=== PATIENT | female | born 1995 | race Caucasian/White ===

== ENCOUNTER 2020-02-13 20:56 | Inpatient (IN) ==
[2020-02-13 21:45] LABS: Apearance,Urine CLEAR (Clear); Bacteria,Urine Occasional /HPF (Few); Bilirubin,Urine Negative (Negative); Blood, Urine Small mg/dL (Negative); Glucose,Urine (UA) Negative (Negative); Ketones,Urine Negative (Negative); Mucus,Urine Many /LPF (Occasional); Nitrite,Urine Negative (Negative); Protein,Urine >=500 MG/DL; RBC,Urine 1 /HPF (0-4); Squamous Epithelial Cell,Urine Occasional /HPF (0-10); Urine Color Yellow (Yellow); Urine Specific Gravity 1.027 (1.001-1.035); Urine Urobilinogen < 2.0 EU/DL (0.2-1.0); WBC,Urine 4 /HPF (0-6)
[2020-02-14] MEDS: LABETALOL 100 MG TABLET PO SCH ×2 (00:32→19:25)
[2020-02-14] MEDS ORDERED: MEPERIDINE 50 MG/1 ML VIAL IV ONE (02:36)
[2020-02-14] MEDS ORDERED: ONDANSETRON 4 MG/2 ML VIAL IV ONE (02:37)
[2020-02-14] MEDS ORDERED: MAGNESIUM SULF RIDER 100 ML IV ONE (02:38)
[2020-02-14] MEDS ORDERED: MAGNESIUM SULF DRIP 40 GM/1,000 ML ML IV SCH (03:00)
[2020-02-14] MEDS ORDERED: CITRIC ACID/SODIUM CITRATE 30 ML UDCUP PO ONE (03:37)
[2020-02-14] MEDS: LACTATED RINGERS 1,000 ML IV SCH ×3 (03:42→18:30)
[2020-02-14 03:54] LABS: Basophils % 0.4 % (0.0-0.8); Eosinophils # 0.2 10*3/uL (0.0-0.87); Eosinophils % 1.5 % (0.00-10.9); Hematocrit 34.7 VOL% (35.7-47.0); Hemoglobin 11.4 GM/DL (12.0-16.0); Immature Granulocytes % 0.4 %; Immature Granulocytes Absolute 0.05 #; Lymphocytes # 2.1 10*3/uL (1.4-4.0); Mean Corpuscular HGB Conc 32.9 GM/DL (32-36); Mean Corpuscular Volume 94.6 FL (87-102); Monocytes % 6.1 % (1.7-12.7); Neutrophils % 72.6 % (38.7-73.9); Platelet Count 109 T/CUMM (130-400); Red Blood Count 3.67 MC/CUMM (3.8-5.5); Red Cell Distribution Width 12.5 % (9.3-17.3); White Blood Count 11.1 T/CUMM (4-12)
[2020-02-14] MEDS ORDERED: ceFAZolin 2,000 MG in PREMIX 1 EACH IV ONE (04:00)
[2020-02-14] MEDS ORDERED: LACTATED RINGERS 1,000 ML IV SCH ×2 (04:00→08:30)
[2020-02-14 04:32] LABS: Microcytosis Slight; Platelet Estimate Decreased
[2020-02-14 04:36] LABS: Apearance,Urine CLEAR (Clear); Bacteria,Urine Occasional /HPF (Few); Bilirubin,Urine Negative (Negative); Blood, Urine Small mg/dL (Negative); Glucose,Urine (UA) Negative (Negative); Ketones,Urine Negative (Negative); Mucus,Urine Occasional /LPF (Occasional); Nitrite,Urine Negative (Negative); Protein,Urine >=500 MG/DL; RBC,Urine 1 /HPF (0-4); Squamous Epithelial Cell,Urine Occasional /HPF (0-10); Urine Color Straw (Yellow); Urine Urobilinogen < 2.0 EU/DL (0.2-1.0); WBC,Urine <1 /HPF (0-6)
[2020-02-14] MEDS ORDERED: hydrALAZINE 20 MG/1 ML VIAL IV ONE ×2 (04:44→05:08)
[2020-02-14] MEDS ORDERED: FAMOTIDINE 20 MG/2 ML VIAL IV ONE (06:16)
[2020-02-14 06:32] LABS: INR 0.9; PT Patient Result 9.3 SECS (9.8-11.9); Partial Thromboplastin Time 26.9 SECS (23.9-33.8)
[2020-02-14 06:51] LABS: Alanine Aminotransferase 11 U/L (13-56); Albumin 2.5 G/DL (3.4-5.0); Alkaline Phosphatase 201 U/L (45-117); Aspartate Amino Transferase 17 U/L (0-37); Bilirubin,Total < 0.39 MG/DL (0.2-1.0); Blood Urea Nitrogen 14 MG/DL (7-18); Calcium 8.3 MG/DL (8.5-10.1); Estimated Glom Filtration Rate 110 ML/MIN; Glucose 87 MG/DL (74-106); Osmolality,Calculated 267.2 MOS/KG (273-304); Total Protein 6.3 G/DL (6.4-8.3); Uric Acid 7.5 MG/DL (2.6-6.0)
[2020-02-14] MEDS ORDERED: MORPHINE 10 MG/10 ML VIAL ONE (07:12)
[2020-02-14] MEDS ORDERED: PHENYLEPHRINE 1 MG/10 ML SYRINGE IV ONE (07:12)
[2020-02-14] MEDS ORDERED: BUPIVACAINE SPINAL 0.75% 2 ML AMP SPINAL ONE (07:12)
[2020-02-14] MEDS ORDERED: OXYTOCIN 10 UNIT/ML VIAL IM ONE (07:17)
[2020-02-14] MEDS ORDERED: OXYTOCIN/LR 30 UNIT/1,000 ML BAG IV ONE (07:17)
[2020-02-14] MEDS ORDERED: OXYTOCIN 10 UNIT/ML VIAL ONE (07:17)
[2020-02-14 08:01] LABS: Cord Venous Blood HCO3 22.4 MMOL/L; Cord Venous Blood PCO2 42.6 MMHG; Cord Venous Blood PO2 23.5 MMHG
[2020-02-14] MEDS ORDERED: MAGNESIUM HYDROXIDE SUSP 30 ML UDCUP PO PRN (08:10)
[2020-02-14] MEDS ORDERED: RHO(D) IMMUNE GLOBULIN 300 MCG SYRINGE IM ONE (08:10)
[2020-02-14] MEDS ORDERED: OXYTOCIN/LR 20 UNIT/1,000 ML BAG IV ONE (08:10)
[2020-02-14] MEDS ORDERED: ACETAMINOPHEN 325 MG TABLET PO PRN (08:10)
[2020-02-14] MEDS ORDERED: ONDANSETRON 4 MG/2 ML VIAL IV PRN (08:10)
[2020-02-14] MEDS ORDERED: ceFAZolin 1,000 MG in SYRINGE 1 EACH IV SCH (08:30)
[2020-02-14] MEDS ORDERED: MIDAZOLAM 2 MG/2 ML VIAL ONE (09:19)
[2020-02-14] MEDS: DOCUSATE SODIUM 100 MG CAPSULE PO SCH (19:26)
[2020-02-14] MEDS: MULTIVITAMIN (PRENATAL) TABLET PO SCH (19:26)
[2020-02-14] MEDS ORDERED: SODIUM CHLORIDE 0.9% 100 ML IV ONE (19:44)
[2020-02-14] MEDS: ceFAZolin 1,000 MG in SYRINGE 1 EACH IV SCH (19:48)
[2020-02-15] MEDS: ceFAZolin 1,000 MG in SYRINGE 1 EACH IV SCH (03:56)
[2020-02-15] MEDS: DOCUSATE SODIUM 100 MG CAPSULE PO SCH (05:09)
[2020-02-15] MEDS: IBUPROFEN 800 MG TABLET PO PRN ×2 (06:16→16:09)
[2020-02-15 07:02] LABS: Basophils % 0.2 % (0.0-0.8); Eosinophils # 0.1 10*3/uL (0.0-0.87); Eosinophils % 0.4 % (0.00-10.9); Hematocrit 34.5 VOL% (35.7-47.0); Hemoglobin 11.3 GM/DL (12.0-16.0); Immature Granulocytes % 0.4 %; Immature Granulocytes Absolute 0.06 #; Lymphocytes # 1.4 10*3/uL (1.4-4.0); Lymphocytes % 9.3 % (21.3-54.2); Mean Corpuscular HGB Conc 32.8 GM/DL (32-36); Mean Corpuscular Volume 96.4 FL (87-102); Mean Platelet Volume 13.9 FL (9.6-12.0); Neutrophils % 82.7 % (38.7-73.9); Platelet Count 120 T/CUMM (130-400); Red Blood Count 3.58 MC/CUMM (3.8-5.5); Red Cell Distribution Width 12.8 % (9.3-17.3); White Blood Count 14.9 T/CUMM (4-12)
[2020-02-15 07:31] LABS: Platelet Estimate Adequate
[2020-02-15] MEDS: SIMETHICONE CHEW 80 MG TABLET PO PRN ×2 (09:37→16:09)
[2020-02-15] MEDS: MULTIVITAMIN (PRENATAL) TABLET PO SCH (09:37)
[2020-02-16] MEDS: DOCUSATE SODIUM 100 MG CAPSULE PO SCH ×2 (03:01→17:07)
[2020-02-16] MEDS: SIMETHICONE CHEW 80 MG TABLET PO PRN (08:30)
[2020-02-16] MEDS: MULTIVITAMIN (PRENATAL) TABLET PO SCH (08:30)
[2020-02-16] MEDS: IBUPROFEN 800 MG TABLET PO PRN ×2 (08:30→15:30)
[2020-02-17] MEDS: DOCUSATE SODIUM 100 MG CAPSULE PO SCH ×2 (06:19→10:17)
[2020-02-17] MEDS: MULTIVITAMIN (PRENATAL) TABLET PO SCH (10:17)
[2020-02-17 10:39] VITALS: BP 134/93
[2020-02-17] MEDS ORDERED: DIPH/TET/ACEL PERT BOOSTER VACCINE 0.5 ML VIAL IM ONE (12:23)
== END 2020-02-17 18:15 | disposition home or self-care (01) | DRG 788 ==
LOC: N.LDOUT 20:56 → N.LD 20:58 → N.OB 02-14 01:10 → N.LD 02-14 02:32 → N.OB 02-14 22:14
PROVIDERS: ADMIT Obstetrics & Gynecology; ATTEND Obstetrics & Gynecology
PROC: LDCSECT (ICD-10-PCS; 2020-02-14 07:00)

== ENCOUNTER 2022-02-01 10:54 | Inpatient (IN) ==
[2022-02-01] MEDS ORDERED: METHYLERGONOVINE 0.2 MG/1 ML AMP IM PRN (12:58)
[2022-02-01] MEDS ORDERED: TRANEXAMIC ACID 1,000 MG in SODIUM CHLORIDE 0.9% 100 ML IV PRN (12:58)
[2022-02-01] MEDS ORDERED: OXYTOCIN/LR 20 UNIT/1,000 ML BAG IV ONE ×2 (12:58→16:11)
[2022-02-01] MEDS ORDERED: miSOPROStoL 200 MCG TABLET RECTAL PRN (12:58)
[2022-02-01] MEDS ORDERED: CITRIC ACID/SODIUM CITRATE 30 ML UDCUP PO ONE (12:58)
[2022-02-01] MEDS ORDERED: CARBOPROST TROMETHAMINE 250 MCG/ML AMP IM PRN (12:58)
[2022-02-01] MEDS ORDERED: LACTATED RINGERS 1,000 ML IV SCH ×2 (13:00→16:30)
[2022-02-01 13:29] LABS: Basophils % 0.4 % (0.0-0.8); Eosinophils # 0.1 10*3/uL (0.0-0.87); Eosinophils % 0.7 % (0.00-10.9); Hematocrit 30.8 VOL% (35.7-47.0); Hemoglobin 10.2 GM/DL (12.0-16.0); Immature Granulocytes % 0.4 %; Immature Granulocytes Absolute 0.03 #; Lymphocytes # 1.4 10*3/uL (1.4-4.0); Lymphocytes % 18.8 % (21.3-54.2); Mean Corpuscular HGB Conc 33.1 GM/DL (32-36); Mean Platelet Volume 12.7 FL (9.6-12.0); Monocytes # 0.5 10*3/uL (0.11-0.8); Monocytes % 6.4 % (1.7-12.7); Neutrophils % 73.3 % (38.7-73.9); Platelet Count 150 T/CUMM (130-400); Red Cell Distribution Width 12.9 % (9.3-17.3); White Blood Count 7.7 T/CUMM (4-12)
[2022-02-01 13:46] LABS: Albumin 2.6 G/DL (3.4-5.0); Bilirubin,Total 0.4 MG/DL (0.20-1.00); Osmolality,Calculated 265.2 MOS/KG (273-304); Potassium 4.2 MMOL/L (3.5-5.1); Total Protein 6.2 G/DL (6.4-8.2)
[2022-02-01] MEDS ORDERED: METOCLOPRAMIDE 10 MG/2 ML VIAL IV ONE (14:12)
[2022-02-01] MEDS ORDERED: FAMOTIDINE 20 MG/2 ML VIAL IV ONE (14:13)
[2022-02-01] MEDS ORDERED: OXYTOCIN 10 UNIT/ML VIAL IM ONE (14:32)
[2022-02-01] MEDS ORDERED: OXYTOCIN 30 UNIT in LACTATED RINGERS 1,000 ML IV ONE (14:32)
[2022-02-01 14:38] LABS: Bilirubin,Urine Negative (Negative); Blood, Urine Negative (Negative); Glucose,Urine (UA) Negative (Negative); Ketones,Urine 80 mg/dL (Negative); Nitrite,Urine Negative (Negative); Protein,Urine Negative (Negative); Urine Appearance Clear (Clear); Urine Color Yellow (Yellow); Urine Specific Gravity 1.025 (1.001-1.035); Urine Urobilinogen 0.2 eU/dL (<2.0); Urine pH 5.5 (4.5-8.0)
[2022-02-01 14:40] LABS: Mucus,Urine Occasional /LPF (Occasional); Squamous Epithelial Cell,Urine Occasional /HPF (0-10)
[2022-02-01] MEDS ORDERED: ceFAZolin 2,000 MG/50 ML DUPLEX IV ONE (14:43)
[2022-02-01] MEDS ORDERED: OXYTOCIN/LR 30 UNIT/1,000 ML BAG IV ONE (15:00)
[2022-02-01] MEDS ORDERED: BUPIVACAINE SPINAL 0.75% 2 ML AMP SPINAL ONE (15:15)
[2022-02-01] MEDS ORDERED: buprenorphine HCL 0.3 MG/ML VIAL ONE (15:16)
[2022-02-01] MEDS ORDERED: PHENYLEPHRINE 1 MG/10 ML SYRINGE IV ONE (15:39)
[2022-02-01] MEDS ORDERED: ACETAMINOPHEN INJ 1,000 MG/100 ML VIAL IV ONE (15:46)
[2022-02-01] MEDS ORDERED: KETOROLAC 30 MG/1 ML VIAL ONE (15:52)
[2022-02-01] MEDS ORDERED: ONDANSETRON 4 MG/2 ML VIAL ONE (16:00)
[2022-02-01] MEDS ORDERED: ACETAMINOPHEN 325 MG TABLET PO PRN (16:11)
[2022-02-01] MEDS ORDERED: MAGNESIUM HYDROXIDE SUSP 30 ML UDCUP PO PRN (16:11)
[2022-02-01] MEDS ORDERED: RHO(D) IMMUNE GLOBULIN 300 MCG SYRINGE IM ONE (16:11)
[2022-02-01] MEDS ORDERED: SIMETHICONE CHEW 80 MG TABLET PO PRN (16:11)
[2022-02-01 16:18] LABS: Cord Arterial Blood HCO3 20.8 MMOL/L
[2022-02-01 16:20] LABS: Cord Venous Blood HCO3 21.8 MMOL/L; Cord Venous Blood PCO2 44.4 MMHG; Cord Venous Blood PO2 26.6
[2022-02-01] MEDS: ONDANSETRON 4 MG/2 ML VIAL IV PRN ×2 (16:54→17:27)
[2022-02-01] MEDS ORDERED: PROMETHAZINE 25 MG/1 ML VIAL IM ONE (17:30)
[2022-02-01 18:28] LABS: Bacteria,Urine Occasional /HPF (Few); Mucus,Urine Occasional /LPF (Occasional); RBC,Urine 1 /HPF (0-4); Squamous Epithelial Cell,Urine Occasional /HPF (0-10)
[2022-02-01 18:31] LABS: Bilirubin,Urine Negative (Negative); Blood, Urine Negative (Negative); Glucose,Urine (UA) Negative (Negative); Ketones,Urine >=160 mg/dL (Negative); Nitrite,Urine Negative (Negative); Protein,Urine Negative (Negative); Urine Appearance Clear (Clear); Urine Color Yellow (Yellow); Urine Specific Gravity 1.025 (1.001-1.035); Urine Urobilinogen 0.2 eU/dL (<2.0); Urine pH 5.5 (4.5-8.0)
[2022-02-01] MEDS ORDERED: ACETAMINOPHEN 500 MG TABLET PO PRN (22:00)
[2022-02-01] MEDS: DOCUSATE SODIUM 100 MG CAPSULE PO SCH (22:51)
[2022-02-01] MEDS: KETOROLAC 30 MG/1 ML VIAL IV PRN (22:52)
[2022-02-01 23:05] LABS: Basophils % 0.2 % (0.0-0.8); Eosinophils % 0.1 % (0.00-10.9); Hematocrit 32.4 VOL% (35.7-47.0); Hemoglobin 10.7 GM/DL (12.0-16.0); Immature Granulocytes % 0.5 %; Immature Granulocytes Absolute 0.07 #; Lymphocytes # 1.2 10*3/uL (1.4-4.0); Monocytes # 0.5 10*3/uL (0.11-0.8); Neutrophils % 86.2 % (38.7-73.9); Platelet Count 148 T/CUMM (130-400); Red Blood Count 3.68 MC/CUMM (3.8-5.5); Red Cell Distribution Width 12.8 % (9.3-17.3); White Blood Count 13.6 T/CUMM (4-12)
[2022-02-01 23:46] LABS: Lymphocytes 15 % (20-55); Platelet Estimate Adequate; Total Cells Counted 100
[2022-02-02] MEDS: KETOROLAC 30 MG/1 ML VIAL IV PRN (04:57)
[2022-02-02 05:54] LABS: Basophils % 0.2 % (0.0-0.8); Eosinophils # 0.1 10*3/uL (0.0-0.87); Eosinophils % 0.5 % (0.00-10.9); Hematocrit 30.5 VOL% (35.7-47.0); Immature Granulocytes % 0.3 %; Immature Granulocytes Absolute 0.03 #; Lymphocytes # 1.4 10*3/uL (1.4-4.0); Lymphocytes % 13.6 % (21.3-54.2); Mean Corpuscular HGB Conc 32.8 GM/DL (32-36); Mean Corpuscular Volume 88.7 FL (87-102); Mean Platelet Volume 13.3 FL (9.6-12.0); Monocytes # 0.8 10*3/uL (0.11-0.8); Monocytes % 8.2 % (1.7-12.7); Neutrophils % 77.2 % (38.7-73.9); Platelet Count 155 T/CUMM (130-400); Red Blood Count 3.44 MC/CUMM (3.8-5.5); Red Cell Distribution Width 13.1 % (9.3-17.3); White Blood Count 9.9 T/CUMM (4-12)
[2022-02-02] MEDS: DOCUSATE SODIUM 100 MG CAPSULE PO SCH ×2 (08:55→20:54)
[2022-02-02] MEDS: MULTIVITAMIN (PRENATAL) TABLET PO SCH (08:55)
[2022-02-02] MEDS: METOCLOPRAMIDE 10 MG TABLET PO SCH ×2 (08:55→16:58)
[2022-02-02] MEDS: IBUPROFEN 800 MG TABLET PO PRN (20:53)
[2022-02-03] MEDS: METOCLOPRAMIDE 10 MG TABLET PO SCH ×2 (00:13→08:59)
[2022-02-03] MEDS: DOCUSATE SODIUM 100 MG CAPSULE PO SCH (09:02)
[2022-02-03] MEDS: MULTIVITAMIN (PRENATAL) TABLET PO SCH (09:02)
[2022-02-03] MEDS: IBUPROFEN 800 MG TABLET PO PRN (09:31)
[2022-02-03 12:53] VITALS: BP 122/70
== END 2022-02-03 14:25 | disposition home or self-care (01) | DRG 788 ==
LOC: N.OB 10:54 → N.LD 19:57 → N.OB 21:35
PROVIDERS: ADMIT Obstetrics & Gynecology; ATTEND Obstetrics & Gynecology
PROC: LDCSECT (ICD-10-PCS; 2022-02-01 15:00)